=== PATIENT | male | born 2000 | race Caucasian/White ===

== ENCOUNTER 2021-04-12 11:27 | Emergency (ER) | payer MEDICAID, SELFPAY ==
[2021-04-12 12:56] VITALS: BP 148/72; PULSE 68; RESP 18; TEMP 36.8; O2SAT 100; BMI 34.2
[2021-04-12 18:52] LABS: MANUAL DIFF FLAG NO
[2021-04-12 18:53] LABS: Appearance Urine CLOUDY; Color Urine YELLOW; Glucose Urine UA NEG (NEG); Leukocyte Esterase Urine NEG (NEG); Nitrite Urine NEG (NEG); Urine Blood NEG (NEG); Urine Ketones NEG (NEG); Urine Protein NEG (NEG-TRACE)
[2021-04-12 18:53] LABS: Basophils Percent Auto 0.2 % (0-2); Eosinophils Absolute Auto 0.2 X10*3/uL (0.0-0.4); Eosinophils Percent Auto 1.8 % (0-4); Hematocrit 46.7 % (42-52); Imm Gran Abs Auto 0.02 X10*3/uL (0.00-0.03); Imm Gran Pct Auto 0.2 % (0.0-0.4); Lymphocytes Absolute Auto 2.9 X10*3/uL (1.2-4.9); Mean Corpuscular HGB Conc 34.3 g/dl (31.0-36.0); Mean Corpuscular Hemoglobin 30.7 pg (27.0-33.0); Mean Corpuscular Volume 89.6 fL (80-98); Mean Platelet Volume 8.8 fL (9.4-12.4); Monocytes Absolute Auto 0.7 X10*3/uL (0.1-1.2); Monocytes Percent Auto 9.1 % (2-11); Neutrophils Absolute Auto 4.3 X10*3/uL (2.0-8.3); Neutrophils Percent Auto 52.7 % (45-73); Platelet Count 206 X10*3/uL (160-400); Red Blood Count 5.21 X10*6/uL (4.60-5.80); White Blood Count 8.1 X10*3/uL (4.8-10.8)
[2021-04-12 19:06] LABS: Alanine Aminotransferase 19 U/L (0-40); Albumin Level 4.7 g/dL (3.5-5.0); Alkaline Phosphatase 66 U/L (39-117); Anion Gap 10 (12-20); Aspartate Amino Transferase 24 U/L (5-37); Bilirubin Total 0.8 mg/dL (0.0-1.0); Blood Urea Nitrogen 11 mg/dL (9-16); Calcium 9.9 mg/dL (8.4-10.2); Carbon Dioxide 30 mmol/L (22-29); Chloride 105 mmol/L (96-108); Creatinine Clr Calc Pharmacy 129.8; Estimated Glomerular Filt Rate > 60; Glucose Random 90 mg/dL (60-115); Lipase 32 U/L (8-78); Potassium 4.1 mmol/L (3.3-5.1); Sodium 141 mmol/L (135-145); Total Protein 7.6 g/dL (6.5-8.0)
[2021-04-12 20:00] VITALS: BP 164/103; PULSE 64; RESP 14; TEMP 36.1; O2SAT 100
--- NOTE | 2021-04-12 20:06 | ED.ABDPAIN ---
HPI - Abdominal Pain General Chief Complaint: Abdominal Pain Stated Complaint: abd pain Time Seen by Provider: 04/12/21 19:58 Source: patient Limitations: no limitations History of Present Illness HPI narrative: This is a 21-year-old male who complains of right-sided abdominal pain for about a month. The pain has been more intense in the last week. The patient today noted had several loose stools. He has not noted any bloody stool. Has had some more frequent urination. Pain is sometimes worse after he eats. He denies any fever. He denies any dysuria. Pain is somewhat better and now. It is not worse with ambulation or coughing. Patient denies any significant past medical history. Related Data Allergies Allergy/AdvReac Type Severity Reaction Status Date / Time No Known Allergies Allergy Verified 04/12/21 12:56 [No Known Allergies*] Review of Systems Constitutional: Reports as per HPI Eyes: Reports no additional eye complaints Reports system reviewed and no additional complaints, except as documented Cardiovascular: Reports no additional cardiovascular complaints Respiratory: Reports no additional respiratory complaints Gastrointestinal: Reports abdominal pain, Reports change in stool character, Denies constipation and Reports vomiting (Occasional) Genitourinary: Reports no additional male genitourinary complaints Physical Exam Vital Signs: Vital Signs: Last Vital Signs Temp 96.9 F 04/12/21 20:00 Pulse 64 04/12/21 20:00 Resp 14 04/12/21 20:00 BP 164/103 H 04/12/21 20:00 Pulse Ox 100 04/12/21 20:00 Body Mass Index 34.2 GI: Inspection: Yes normal to inspection Palpation (GI): Tenderness to palpation present (GI) (Mild right upper quadrant; no right lower quadrant/McBurney's) in the epigastrum; Negative for not at McBurney's point, not periumbilically and Garcia's sign negative Auscultation: normal bowel sounds MDM - Abdominal Pain MDM Narrative Medical decision making narrative: Patient with right-sided abdominal pain for about a month, recently worsened associated with some loose stool. Patient not ill appearing, his sats up on the gurney and ambulates normally. Mild right upper quadrant pain. No tenderness at McBurney's point or in the right lower quadrant. Negative Garcia sign. CBC, chemistry, urinalysis normal. Limited bedside ED ultrasound did not show any distended gallbladder or gallstone Lab Data Attestation: I reviewed the patient's lab results. Result diagrams: 04/12/21 18:44 04/12/21 18:45 Labs: Lab Results 04/12/21 04/12/21 04/12/21 Range/Units 18:44 18:45 18:47 WBC 8.1 (4.8-10.8) X10*3/uL RBC 5.21 (4.60-5.80) X10*6/uL Hgb 16.0 (14.0-18.0) g/dl Hct 46.7 (42-52) % MCV 89.6 (80-98) fL MCH 30.7 (27.0-33.0) pg MCHC 34.3 (31.0-36.0) g/dl RDW 11.0 (11.0-16.0) % Plt Count 206 (160-400) X10*3/uL MPV 8.8 L (9.4-12.4) fL Immature Gran % (Auto) 0.2 (0.0-0.4) % Neut % (Auto) 52.7 (45-73) % Lymph % (Auto) 36.0 (20-40) % [place] % (Auto) 9.1 (2-11) % Eos % (Auto) 1.8 (0-4) % Baso % (Auto) 0.2 (0-2) % Lymph # (Auto) 2.9 (1.2-4.9) X10*3/uL [place] # (Auto) 0.7 (0.1-1.2) X10*3/uL Eos # (Auto) 0.2 (0.0-0.4) X10*3/uL Baso # (Auto) 0.0 (0.0-0.2) X10*3/uL Abs Immat Gran (auto) 0.02 (0.00-0.03) X10*3/uL Absolute Neuts (auto) 4.3 (2.0-8.3) X10*3/uL Absolute Nucleated RBC 0.000 (0.0-0.012) X10*3/uL Nucleated RBC % (auto) 0.0 (0.0-0.2) /100WBC Sodium 141 (135-145) mmol/L Potassium 4.1 (3.3-5.1) mmol/L Chloride 105 (96-108) mmol/L Carbon Dioxide 30 H (22-29) mmol/L Anion Gap 10 L (12-20) BUN 11 (9-16) mg/dL Creatinine 1.10 (0.5-1.4) mg/dL Estim Creat Clear Calc 129.8 Estimated GFR > 60 Random Glucose 90 (60-115) mg/dL Calcium 9.9 (8.4-10.2) mg/dL Total Bilirubin 0.8 (0.0-1.0) mg/dL AST 24 (5-37) U/L ALT 19 (0-40) U/L Alkaline Phosphatase 66 (39-117) U/L Total Protein 7.6 (6.5-8.0) g/dL Albumin 4.7 (3.5-5.0) g/dL Lipase 32 (8-78) U/L Urine Color YELLOW Urine Appearance CLOUDY Urine pH 7.0 (5.0-8.0) Ur Specific [place] 1.020 (1.005-1.025) Urine Protein NEG (NEG-TRACE) MG/DL Urine Glucose (UA) NEG (NEG) MG/DL Urine Ketones NEG (NEG) MG/DL Urine Blood NEG (NEG) Urine Nitrite NEG (NEG) Ur Leukocyte Esterase NEG (NEG) Discharge Plan Discharge Clinical Impression: Abdominal pain Patient Disposition: Home, Self-Care Instructions: Abdominal Pain (ED) Additional Instructions: Use acetaminophen and/or ibuprofen for pain. Follow up with her primary care physician if ear pain persists. Return for any worsened symptoms such as fever, increased pain in 1 area of her abdomen, pain is worse with cough or movement, increased vomiting associated with eating. Stand Alone Forms: Work/School Release Interventions: ED Discharge Assessment Last Done: 04/12/21 20:38 Discharge Date/Time: 04/12/21 20:38 [facility] Past Medical History Medical History (Updated 04/12/21 @ 20:27 by Darwin Gallagher MD) Asthma Social History Social History Alcohol intake: unknown Patient Tobacco Use Status: Never used Tobacco Use of substances other than those prescribed or required for medical reasons: Unknown Advance Directives: No
== END 2021-04-12 20:38 | disposition home or self-care (01) ==
PROVIDERS: Emergency Provider Emergency Medicine; PCP Internal Medicine
DX: R10.11 Right upper quadrant pain (principal); J45.909 Unspecified asthma, uncomplicated
CPT/HCPCS: 36415; 80053; 81003; 83690; 85025; 99283; 99284